=== PATIENT | male | born 1945 ===

== ENCOUNTER 2018-11-11 12:54 | Emergency (ER) | payer OTHER ==
[~2018-11-11] VITALS: Ht 180.3 cm; Wt 83.9 kg
[2018-11-11] MEDS ORDERED: CLONIDINE1 EAC1 (13:55)
== END 2018-11-11 16:25 | disposition home or self-care (01) ==
LOC: ER 12:54
DX: H57.12 Ocular pain, left eye (principal); T15.02XA Foreign body in cornea, left eye, initial encounter; X58.XXXA Exposure to other specified factors, initial encounter; Y93.89 Activity, other specified; Y92.89 Other specified places as the place of occurrence of the external cause; Y99.8 Other external cause status